=== PATIENT | female | born 1980 | race Caucasian/White ===

== ENCOUNTER 2023-01-05 09:41 | Emergency (ER) | payer OTHER ==
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
[2023-01-05 13:11] VITALS: BP 102/60; O2SAT 100
[2023-01-05] MEDS ORDERED: iohexoL-300 100 ML VIAL IVP ONE (13:46)
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
[2023-01-05] MEDS ORDERED: HYDROcod/ACET 5/325 Prepack 4 PO STA (14:20)
== END 2023-01-05 14:29 | disposition home or self-care (01) ==
LOC: ED 09:41
DX: S16.1XXA Strain of muscle, fascia and tendon at neck level, initial encounter (principal); S30.1XXA Contusion of abdominal wall, initial encounter; R51.9 Headache, unspecified; V89.2XXA Person injured in unspecified motor-vehicle accident, traffic, initial encounter; Y92.410 Unspecified street and highway as the place of occurrence of the external cause
CPT/HCPCS: 70450; 72125; 74177; 99283; 99284; Q9967